=== PATIENT | female | born 1980 | race American Indian/Alaskan Native ===

== ENCOUNTER 2019-08-14 17:47 | Emergency (ER) | payer BC ==
[2019-08-14 17:53] VITALS: BP 126/64
--- NOTE | 2019-08-14 18:01 | Emergency Department Report ---
Chief Complaint: Earache Stated Complaint: EAR ACHE Time Seen by Provider: 08/14/19 17:53 - HPI History of Present Illness: This is a 38-year-old female that presents to the ED with complaint of right earache for 4 days. Reports muffled hearing. She is applying tea tree oil with minimal improvement of symptoms. Patient denies any hearing loss. Denies any mastoid tenderness. Denies any fever, chills, headache, nausea, vomiting, otorrhea, chest pain or SOB. Denies any other complaints. - ROS Review of Systems: Constitutional: denies: chills, fever HEENT: admits: right ear pain Respiratory: denies: cough, shortness of breath, wheezing Cardiovascular: denies: chest pain, palpitations Gastrointestinal: denies: abdominal pain, nausea, diarrhea Skin: denies: lesions and rash Neurological: denies: headache, weakness, paresthesias Psychiatric: denies: anxiety, depression - Exam Vital Signs: Vital Signs 08/14/19 17:50 Temperature 98.7 F Pulse Rate 83 Respiratory 20 Rate Blood Pressure 126/64 O2 Sat by Pulse 96 Oximetry Physical Exam: General: Vital signs noted. No distress. Alert and acting appropriately. HEENT: Yes erytheamouts right ear canal, tenderness of the pinna. No Periorbital Edema, No Conjuctival Injection, No Chemosis, No Perioral Edema, No Tongue Edema, No Uvular Edema, No Compromised Airway, No Drooling Lungs: Yes Good Air Exchange (Normal Breath Sounds), No Wheezes, No Ronchi, No Stridor, No Cough, No Labored Respirations, No Retractions, No Use of Accessory Muscles, No Other Abnormal Lung Sounds Heart: Yes Regular, No Murmur Skin: Yes Maculopapular Rash (1/2 cm erythema linear wheels left posterior upper thigh, blanchable, no surrounding cellulitis, nontender ), No Urticarial Rash, No Morbilliform rash, No Bulla(e), No Excoriations, No Weeping, No Tenderness, No Erythema, No Edema, No Encrustations MSE screening note: Focused history and physical exam performed. Due to findings the following was ordered: ED Medical Decision Making - Medical Decision Making Patient is stable and was examined by me. On focal exam the right pinna is tender and external canal erythematous. Patient is afebrile. Patient will be treated for otitis externa. Start cortisporin. Patient was instructed to Follow-up with a primary care doctor in 1-2 weeks or if symptoms worsen and continue return to emergency room as soon as possible. At time of discharge, the patient does not seem toxic or ill in appearance. No acute signs of distress noted. Patient agrees to discharge treatment plan of care. No further questions noted by the patient. ED Disposition for MSE Clinical Impression: Otalgia of right ear Otitis externa Qualifiers: Otitis externa type: diffuse Chronicity: acute Laterality: right Qualified Code(s): H60.311 - Diffuse otitis externa, right ear Disposition: TO HOME OR SELFCARE Is pt being admited?: No Does the pt Need Aspirin: No Condition: Stable Instructions: Otitis Externa (ED) Additional Instructions: Abstain from water entering ear for 7-10 days. Take antibiotic drops as prescribed. Follow up with a primary care doctor in 1-2 weeks. Prescriptions: Neomy/Polymyx B/Hc (Otic) Soln [Cortisporin (Otic) Soln] 4 drops AD TID 7 Days #1 bottle Referrals: [facility] [Outside] - 3-5 Days [facility] [Outside] - 3-5 Days [facility] [Provider Group] - 3-5 Days Time of Disposition: 18:05
== END 2019-08-14 18:13 | disposition home or self-care (01) ==
LOC: ED 17:47
DX: H66.91 Otitis media, unspecified, right ear (principal)
CPT/HCPCS: 99282